=== PATIENT | female | born 1970 | race Caucasian/White ===

== ENCOUNTER 2017-02-01 16:30 | Emergency (ER) | payer MEDICARE, MEDICAID ==
[~2017-02-01] VITALS: Ht 160 cm; Wt 120.7 kg
[2017-02-01] MEDS ORDERED: BACTRIM DS TAB1 EACH PO (16:52)
[2017-02-01] MEDS ORDERED: TOPROL XL25 MG PO (16:53)
[2017-02-01] MEDS ORDERED: SPIRIVA18 MCG INH (16:53)
[2017-02-01] MEDS ORDERED: PROAIR RESPICL90 MCG (16:53)
[2017-02-01] MEDS ORDERED: SYMBICORT 16010.2 GM INH (16:53)
[2017-02-01] MEDS ORDERED: AMLODIPINE BESYL5 MG PO (16:54)
[2017-02-01] MEDS ORDERED: COZAAR25 MG PO (16:54)
[2017-02-01] MEDS ORDERED: NOVOLOG100 UNIT/1 SUB-Q (16:54)
[2017-02-01] MEDS ORDERED: CRESTOR20 MG PO (16:54)
[2017-02-01] MEDS ORDERED: LANTUS100 UNITS/ SUB-Q (16:55)
[2017-02-01] MEDS ORDERED: DEPAKOTE500 MG PO (16:55)
[2017-02-01] MEDS ORDERED: CYMBALTA60 MG PO (16:56)
== END 2017-02-01 17:14 | disposition home or self-care (01) ==
LOC: ED 16:30
DX: Z48.817 Encounter for surgical aftercare following surgery on the skin and subcutaneous tissue (principal); Z88.8 Allergy status to other drugs, medicaments and biological substances; Z79.899 Other long term (current) drug therapy; Z79.4 Long term (current) use of insulin
CPT/HCPCS: 99282